=== PATIENT | male | born 1945 | race Caucasian/White ===

== ENCOUNTER 2025-01-08 11:27 | Emergency (ER) | payer MEDICARE, BC, SELFPAY ==
[2025-01-08 11:30] VITALS: BP 144/69; PULSE 76; RESP 18; TEMP 36.4; O2SAT 95; BMI 24.8
--- NOTE | 2025-01-08 11:48 | ED.FALL ---
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 Unfortunately Dharmesh was going down the basement stairs yesterday and ended up falling down 3 steps as he was trying to lift something into the basement. He felt like his knee was twisting at that time. He did not sustain any other injury and denies increasing neck or head pain. Initially he was walking on it but over the evening he had increasing pain and this morning he states it is even hard to take a step. He is not currently on a blood thinner. Movement greatly increases does discomfort as does weight-bearing. He takes tramadol for cervical spine pain and notes that this is not helping. Related Data Home Medications ?Medication ?Instructions ?Recorded ?Confirmed amlodipine 5 mg tablet 5 mg PO DAILY 01/08/25 01/08/25 fluticasone 250 mcg-salmeterol 50 1 inh inhalation BID 01/08/25 01/08/25 mcg/dose blistr powdr for inhalation lutein 25 mg-zeaxanthin 5 mg cap PO 01/08/25 capsule (Ocuvite Blue Light) mesalamine 800 mg tablet,delayed 1,600 mg PO TID 01/08/25 01/08/25 release potassium chloride 10 mEq 10 meq PO DAILY 01/08/25 01/08/25 tablet,extended release rosuvastatin 5 mg tablet 5 mg PO DAILY 01/08/25 01/08/25 tramadol 50 mg tablet 50 mg PO BID 01/08/25 01/08/25 Allergies Allergy/AdvReac Type Severity Reaction Status Date / Time amoxicillin (From Augmentin) Allergy Unknown Verified 01/08/25 11:37 clavulanic acid (From Allergy Unknown Verified 01/08/25 11:37 Augmentin) morphine AdvReac Mild Nausea Verified 01/08/25 11:37 Review of Systems Status of ROS: Reports: 6 or more systems reviewed and unremarkable except as noted in History and below [facility] Medical History Amputation of finger of left hand ?S68.119A - Complete traumatic metacarpophalangeal amputation of unspecified finger, initial encounter (ICD-10) Asthma-COPD overlap syndrome ?J44.89 - Other specified chronic obstructive pulmonary disease (ICD-10) Neck pain, chronic ?M54.2 - Cervicalgia (ICD-10) ?G89.29 - Other chronic pain (ICD-10) AGUSTIN (iron deficiency anemia) ?D50.9 - Iron deficiency anemia, unspecified (ICD-10) Acute Rocky ulcer ?K25.3 - Acute gastric ulcer without hemorrhage or perforation (ICD-10) Ulcerative colitis ?K51.90 - Ulcerative colitis, unspecified, without complications (ICD-10) Macular degeneration of right eye ?H35.30 - Unspecified macular degeneration (ICD-10) Prediabetes ?R73.03 - Prediabetes (ICD-10) Hyperlipidemia ?E78.5 - Hyperlipidemia, unspecified (ICD-10) Essential hypertension ?I10 - Essential (primary) hypertension (ICD-10) Surgical History Hx of laminectomy ?Z98.890 - Other specified postprocedural states (ICD-10) H/O craniotomy ?Z98.890 - Other specified postprocedural states (ICD-10) H/O esophagogastroduodenoscopy ?Z98.890 - Other specified postprocedural states (ICD-10) Exam Narrative: Exam Narrative: Alert and oriented. Very well spoken gentleman in no acute distress. External ears eyes nose clear. No respiratory distress. Examination of the right knee shows a mild effusion without erythema. Point tenderness noted on the upper tibial plateau in the midline. No pain on the joint lines or with movement of the patella. Distally no evidence of swelling. No pain with palpation of the popliteal fossa. Const: Vital Signs, click to edit/add: Vital Signs - 24 hr 01/08/25 11:30 Temperature 97.6 F Pulse Rate [Right Pulse Oximeter] 76 Respiratory Rate 18 Blood Pressure [Ri ght Upper Arm] 144/69 H Pulse Oximetry 95 Oxygen Delivery Me thod Room Air Documenting provider has reviewed patient's vital signs: yes Course Course ED Course: Differential diagnosis includes but is not limited to internal derangement of the knee, effusion, soft tissue injury. Will obtain x-rays of the right knee at this time. For pain will give patient 1 dose of oxycodone 5 mg orally as he has already taken tramadol and a 1000 mg of Tylenol earlier this morning. Vital Signs Vital signs: Initial Vital Signs Temperature 97.6 F 01/08/25 11:30 Temperature Source Temporal Artery Scan 01/08/25 11:30 Pulse Rate 76 01/08/25 11:30 Pulse Rhythm Regular 01/08/25 11:30 Pulse Strength 3+ Normal 01/08/25 11:30 Respiratory Rate 18 01/08/25 11:30 Blood Pressure 144/69 H 01/08/25 11:30 Blood Pressure Mean 94 01/08/25 11:30 Blood Pressure Position Sitting 01/08/25 11:30 Pulse Oximetry 95 01/08/25 11:30 Oxygen Delivery Method Room Air 01/08/25 11:30 Vital Signs Temperature 97.6 F 01/08/25 11:30 Pulse Rate 76 01/08/25 11:30 Respiratory Rate 18 01/08/25 11:30 Blood Pressure 144/69 H 01/08/25 11:30 Pulse Oximetry 95 01/08/25 11:30 Oxygen Delivery Method Room Air 01/08/25 11:30 Temperature 97.6 F 01/08/25 11:30 Pulse Rate 76 01/08/25 11:30 Respiratory Rate 18 01/08/25 11:30 Blood Pressure 144/69 H 01/08/25 11:30 Pulse Oximetry 95 01/08/25 11:30 Oxygen Delivery Method Room Air 01/08/25 11:30 Medications Administered Medications: Discontinued Medications Generic Name Dose Route Start Last Admin Trade Name Freq PRN Reason Stop Dose Admin Oxycodone HCl 5 mg 01/08/25 11:58 01/08/25 12:08 Oxycodone 5 Mg Tablet PO 01/08/25 11:59 5 mg ONCE ONE Administration MDM - Fall MDM Narrative Medical decision making narrative: 1. Right knee mtvpre-o-mod does show an effusion but no acute fracture. I do have worry regarding compromise of the ligaments and meniscus given patient's description of a twisting type of injury as well as feeling unsteady when he has to move side to side. At this time will place a Jamie wrap to limit swelling. Will then place a knee immobilizer and crutches for partial weight-bearing. I do want him to leave his leg down in use that for balance. Would ask that he use ice on the knee for discomfort and tried elevated as much as possible. For pain I would have him stop tramadol and instead use oxycodone 5 mg as needed. Warnings regarding side effects including constipation. I have also reminded this patient that he should not use alcohol, any sedating medications or drive while using oxycodone. This is given out of [place] meds. 5 mg p.o. q.4-6 hours p.r.n. 10. With no refills. Further narcotics will need to come from his primary MD. 2. Disposition-patient will be discharged home. We have made an appointment for him with our Orthopedic [facility]. He may need MRI and/or physical therapy but certainly I suspect he will require further evaluation. He is to return to the ER for worsening symptoms and as needed. No evidence of acute head or neck injury during today's visit. Imaging Data Right knee x-ray: Attestation: I have reviewed the pertinent imaging results. My impression: I do not note any acute fractures. Radiologist's impression: None. Findings/ Impression: Mild degenerative arthrosis. No acute fracture or dislocation. Moderate knee joint effusion. Soft No localized tissue swelling. Discharge Plan Discharge Clinical Impression: Injury of knee, right Qualifiers: Encounter type: initial encounter Qualified Code(s): S89.91XA - Unspecified injury of right lower leg, initial encounter Patient Disposition: Home, Self-Care Condition: Improved Additional Instructions: Apply Jamie wrap to the knee, knee immobilizer and use crutches so that you do not have to bear full weight on the knee. I suspect you may need MRI and/or physical therapy and therefore would like you to follow-up with orthopedics. Your appointment will be tomorrow, 01/09 at 1030AM at the [facility]. Oxycodone 5-1/2-1 tab every 4-6 hours as needed for pain. While using oxycodone I would ask you not to use the tramadol as using both of these together can cause over sedation. I would suggest the use of Colace so that you do not develop constipation. Ice to area of discomfort. Try to stay off knee and keep it elevated. The emergency room for worsening symptoms. Prescriptions: No Action lutein-zeaxanthin [Ocuvite Blue Light] 25-5 mg capsule PO fluticasone propion-salmeterol 250-50 mcg/dose blister with device 1 inh inhalation BID potassium chloride 10 mEq tablet extended release 10 meq PO DAILY amlodipine 5 mg tablet 5 mg PO DAILY rosuvastatin 5 mg tablet 5 mg PO DAILY mesalamine 800 mg tablet,delayed release (DR/EC) 1,600 mg PO TID Rx Instructions: must be taken on empty stomach; no food 1 hr after or 2-3 hrs before dose tramadol 50 mg tablet 50 mg PO BID Follow Up/Referrals: Del Krueger MD [Primary Care Provider, Family Practice] Stand Alone Forms: [employer] Info Instructions
--- NOTE | 2025-01-08 11:58 | CRLHL7_ITS ---
For Patients: As a result of the Cures Act, medical imaging exams and procedure reports are released immediately into your electronic medical record. You may view this report before your referring provider. If you have questions, please contact your health care provider. Indication: Twisting with effusion Technique: Right knee 3 views. Comparison: None. Findings/ Impression: Mild degenerative arthrosis. No acute fracture or dislocation. Moderate knee joint effusion. Soft No localized tissue swelling. Dictated by Brady Alexander MD @ 01/08/2025 12:36:32 PM (Electronically Signed)
--- OUTSIDE RECORDS SUMMARY | 2025-01-08 12:33 | XMS_ITS | Clinical Summary ---
Author Organization [facility] Address [address] [place] [address] Care Team Providers Care Hose Stripper Name Role Phone Del Krueger MD Primary Care Provider Allergies Active Allergy Reactions Criticality Noted Date Comments Amoxicillin-Pot Clavulanate Nausea And Vomiting 04/13/2011 Cephalexin Other - Describe In Comment Field 10/29/2012 diarrhea Morphine *Unknown 08/17/2019 Acute psychosis Medications coenzyme q10 100 mg cap Take 1 Cap by mouth. 12/30/19 19 Active multivitamin (MVI) tablet Take 1 tablet by mouth once daily. 0 11/19/19 20 Active calcium carbonate-vitamin D3, 600 mg-400 unit, 600 mg(1,500mg) -400 unit tablet Take 1 tablet by mouth 2 times daily with meals. 200 tablet 4 11/19/19 20 Active lutein-zeaxanthin 25-5 mg cap Take by mouth. 0 11/19/19 20 Active acetaminophen (TYLENOL EXTRA STRGTH) 500 mg tablet Take 1 tablet by mouth every 6 hours if needed. Max acetaminophen dose: 4000mg in 24 hrs. 0 11/19/19 20 Active albuterol HFA (PRO-AIR; VENTOLIN; PROVENTIL) 90 mcg/actuation inhalerIndications :Moderate persistent asthma with exacerbation (HC) Inhale 1-2 Puffs by mouth every 4 hours if needed for Shortness of Breath 1st choice. 2 g 1 11/23/19 24 Active amLODIPine (NORVASC) 5 mg tabletIndications: Essential hypertension Take 1 Tablet (5 mg) by mouth once daily. 90 Tablet 3 11/23/19 24 Active chlorthalidone (HYGROTON) 25 mg tabletIndications: Benign essential HTN Take 1 Tablet (25 mg) by mouth once daily. 90 Tablet 3 11/23/19 24 Active fluticasone propion-salmeteroL (Advair Diskus) 250-50 mcg/Dose diskus inhalerIndications :Moderate persistent asthma with exacerbation (HC) Inhale 1 Puff by mouth two times daily. 60 Each 12 11/23/19 24 Active montelukast (SINGULAIR) 10 mg tabletIndications: Asthma-COPD overlap syndrome (HC) Take 1 Tablet (10 mg) by mouth at bedtime. 90 Tablet 3 11/23/19 24 Active polyethylene glycol-electrolyte 236-22.74-6.74 -5.86 gram suspensionIndicati ons:Encounter for screening colonoscopy Drink 2 liters (half the bottle) the day before the procedure and 2 liters (half the bottle) 6 hours prior to procedure. 4000 mL 08/29/19 25 Active omeprazole 20 mg Delayed-Release capsuleIndications :Rocky ulcer, unspecified ulcer chronicity,Hiatal hernia,Gastroesoph ageal reflux disease, unspecified whether esophagitis present Take 1 Capsule (20 mg) by mouth once daily before a meal. Take 30-60 minutes before a meal/food once a day. 90 Capsule 3 09/12/19 25 Active traMADoL (ULTRAM) 50 mg tabletIndications: Neck pain TAKE 1 TABLET BY MOUTH TWICE A DAY NEEDED FOR PAIN 60 Tablet 11/05/19 25 Active mesalamine (ASACOL HD) 800 mg DELAYED RELEASE tabletIndications: Ulcerative colitis without complications, unspecified location (HC) TAKE 2 TABLETS (1,600 MG) BY MOUTH TWO TIMES DAILY. 360 Tablet 11/17/19 25 Active potassium chloride (KLOR-CON M10) 10 mEq extended-release tablet (part/cryst)Indica tions:Essential hypertension TAKE 1 TABLET (10 MEQ) BY MOUTH TWO TIMES DAILY WITH MEALS. 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 C-scope negative. Resolved Problems Problem Noted Date Diagnosed Date Resolved Date Chronic obstructive pulmonar y disease, unspecified COPD type 04/17/2023 06/07/2023 Chronic obstructive pulmonary disease 03/29/2020 03/29/2020 Ulcerative colitis without complications 03/29/2020 03/29/2020 COPD (chronic obstructive pulmonary disease) 03/29/2020 Encounters Date Type Department Care Team Description 12/01/2024 Refill [facility] [address] [place] [address] Del Krueger MD Refill Request (Rosuvastatin) 11/14/2024 Refill [facility] [address] [place] [address] Del Krueger MD Refill Request (Mesalamine, Potassium Chloride) 11/03/2024 Refill [facility] [address] [place] [address] Del Krueger MD Refill Request (Tramadol) 10/29/2024 Orders Only [facility] [address] [place] [address] Del Krueger MD <No scans attached> 10/28/2024 11:30 AM CDT Orders Only [facility] [address] [place] [address] Lab, [facility] 10/28/2024 Travel 10/27/2024 11:30 AM CDT Office Visit [facility] [address] [place] [address] [address] [facility] (SALIN[facility] check) 10/26/2024 Travel from Last 3 Months Immunizations Immunization Administration Dates Next Due COVID-19 VACCINE SPIKEVAX (M ODERNA 50MCG/0.5ML) 12YO+ PFS 08/19/2024,06/07/2023 COVID-19 vaccine (Moderna 100mcg/0.5mL) PF, MDV 02/24/2021,06/24/2020,05/27/2020 COVID-19 vaccine (Moderna 50mcg/0.5mL) 12YO+ BIVALENT PF, MDV 12/05/2021 Hepatitis A (Adult) 04/17/2016,03/12/2013 Hepatitis B (Adult) 04/15/1990,11/06/1989,1989 Influenza Virus, Unspecified 01/25/2009, 02/29/2000,01/07/1999,1997,01/08/1995 Influenza, High-dose Inactivated 020,01/26/2016,12/30/2014,2012 Influenza, High-dose Quadriv alent Inactivated 01/15/2020 Influenza, IIV3 (Age >=3 years) 01/05/2012,12/06,01/04/2010 Influenza, Inactivated AIIV4 (Age 65+ Years) Preserv Free 12/07/2022,12/05/2021,12/14/2020 MMR 01/22/1990 Pneumococcal Conj 20-valent (Prevnar 20) 06/05/2022 Pneumococcal Poly,23-Valent (Pneumovax) 10/29/2012 Pneumococcal conj 13-Valent (Prevnar 13) 01/26/2016 Tdap 10/29/2012 Zoster (Shingrix-RZV, recombinant) 10/07/2018, Zoster (Zostavax-ZVL, live) 06/28/2012 Family History Medical History Relation Name Comments COPD Father Coronary artery disease Father COPD Mother Anesthesia Problem No Family History Relation Name Status Comments Father Mother Social History Tobacco Use Types Packs/Day Years Used Date Smoking Tobacco: Never Smokeless Tobacco: Never Tobacco Cessation:Counseling Given: No Alcohol Use Standard Drinks/Week Comments Not Currently 0 (1 standard drink = 0.6 oz pur e alcohol) PHQ-2 Answer Date Recorded PHQ-2 TOTAL SCORE 0 11/23/2023 Social Connections Answer Date Recorded Do you often feel lonely or isolated from those around you? 0 08/19/2024 Financial Resource Strain Answer Date R ecorded Difficulty of Paying Living Expenses 3 08/19/2024 Difficulty of Paying Living Expenses Not on file 08/19/2024 Food Insecurity Answer Date Recorded Do you worry your food will run out before you are able to buy more? 1 08/19/2024 Transportation Needs Answer Date Record ed Does lack of transportation keep you from medica l appointments? 1 08/19/2024 Does lack of transportation keep you from work, meetings or getting things that you need? 1 08/19/2024 Housing Stability Answer Date Recorded What is your housing situation today? 1 08/19/2024 Utilities Answer Date Recorded Do you have trouble paying f or utilities (for example, heat, electricity, water, phone)? 1 08/19/2024 Sex and Gender Information Value Date Recorded Sex Assigned at Not on file Legal Sex Male 7:07 AM [employer] Gender Identity Not on file Sexual Orientation Not on file Obstetrics History Last Filed Vital Signs Vital Sign Reading Time Taken Comments Blood Pressure 132/75 08/19/2024 11:20 AM CDT Pulse 83 08/19/2024 11:20 AM CDT Temperature 36.6 C (97.9 F) 06/10/2024 12:10 PM CDT Respiratory Rate 16 06/10/2024 12:10 PM CDT Oxygen Saturation 95% 08/19/2024 11:20 AM CDT Inhaled Oxygen Concentration - - Weight 79.4 kg (175 lb) 08/19/2024 11:20 AM CDT Height 180.9 cm (5' 11.22) 11/23/2023 8:25 AM C DT Body Mass Index 24.26 11/23/2023 8:25 AM CDT Plan of Treatment Health Maintenance Due Date Last Done Comments RSV vaccine for adults or (1 - 1-dose 75+ series) 2021 Tetanus booster 10/29/2022 10/29/2012 BMI (ht and wt on same day) for age 18+ 11/22/2024 11/23/2023, 06/07/2023, 12/07/2022, Additional history exists Depression screening for age 12+ 11/22/2024 11/23/2023, 06/07/2023, 12/05/2021, Additional history exists Medicare Wellness for age 65+ 11/23/2024 11/23/2023 Influenza Vaccine (#1) 2024 , 12/05/2021, 12/14/2020, Additional history exists COVID-19 vaccine series ( season) 2025 08/19/2024, 06/07/2023, 12/05/2021, Additional history exists Hepatitis B series for 19+ Completed 04/15, 11/06/1989, 10/05/1989 Zoster (shingles) series for age 50+ Completed 10/07/2018, 06/13/2017, 06/28/2012 Hepatitis C screening for ag e 18-79 Completed 05/26/2021 Pneumococcal series for age 50+ Completed 06/05/2022, 01/26/2016, 10/29/2012 Procedures Procedure Name Priority Date/Time Associated Diagnosis Comments IRON PLUS IRON BINDING CAP Routine 10/28/2024 11:29 AM CDT Iron deficiency anemia, unspecified iron deficiency anemia type HEMOGLOBIN Routine 10/28/2024 11:29 AM CDT Iron deficiency anemia, unspecified iron deficiency anemia type FERRITIN Routine 10/28/2024 11:29 AM CDT Iron deficiency anemia, unspecified iron deficiency anemia type ANTI HCV Routine 05/26/2021 2:10 PM [employer] Need for hepatitis C screening test from Last 3 Months or Most Recently Relevant to Health Maintenance Results * (ABNORMAL) IRON PLUS IRON BINDING CAP (10/28/2024 11:29 AM CDT) IRON, TOTAL 245(H) 50 - 180 mcg/dL [facility] IRON BINDING CAPACITY 389 250 - 425 mcg/dL (calc) [facility] % SATURATION 63(H) 20 - 48 % (calc) [facility] Blood BLOOD SPECIMEN / Unknown 10/28/2024 11:29 AM CDT 10/28/2024 11:30 AM CDT us Del Krueger MD CHEMISTRY Final Result Performing Organization Address [facility]/ZIP Co de Phone Number [email or web address] [facility] [address] [place] [phone], [facility] [address] [place] [address] * HEMOGLOBIN (10/28/2024 11:29 AM CDT) Pathologist [facility] HEMOGLOBIN 14.1 13.2 - 17.1 g/dL [facility] Blood BLOOD SPECIMEN / Unknown 10/28/2024 11:29 AM CDT 10/28/2024 11:30 AM CDT us Del Krueger MD HEMATOLOGY Final Result Performing Organization Address [facility]/ZIP Co de Phone Number [email or web address] [facility] [address] [place] [phone], [facility] [address] [place] [address] * (ABNORMAL) FERRITIN (10/28/2024 11:29 AM CDT) FERRITIN 23(L) 24 - 380 ng/mL [facility] Blood BLOOD SPECIMEN / Unknown 10/28/2024 11:29 AM CDT 10/28/2024 11:30 AM CDT us Del Krueger MD CHEMISTRY Final Result [facility] [address] [place] [address], [facility] [address] [place] [address] * ANTI HCV (05/26/2021 2:10 PM [employer]) HEPATITIS C ANTIBODY Non-React nahid Non-React nahid 05/26/2021 9:38 PM [employer] [facility] Comment:Antibodies to HCV no t detected; does not exclude the possibility of exposure to HCV. Blood BLOOD SPECIMEN / Unknown Venipuncture / Unknown 05/26/2021 2:10 PM [employer] 05/26/2021 2:10 PM [employer] Del Krueger MD SEND OUTS Final Result [facility] [address] [place] [address], from Last 3 Months or Most Recently Relevant to Health Maintenance Insurance [address] [facility] [address] [place] ONLY MEDICARE PART A HB ONLY MEDICARE PART B HB ONLY [place] BLUE MR PB ONLY Care Teams Hose Stripper Relationship Specialty Start Date End Date Del Krueger MD [address] [place], [place] [id number] PCP - General Family Practice 03/29/20
== END 2025-01-08 13:44 | disposition home or self-care (01) ==
PROVIDERS: Emergency Provider Family Medicine; PCP Family Medicine
DX: S89.91XA Unspecified injury of right lower leg, initial encounter (principal); M25.461 Effusion, right knee; W10.8XXA Fall (on) (from) other stairs and steps, initial encounter; X50.1XXA Overexertion from prolonged static or awkward postures, initial encounter
CPT/HCPCS: 73562; 99283; 99284; A9270

== ENCOUNTER 2025-01-12 07:00 | Outpatient (CLI) | payer MEDICARE, BC, SELFPAY ==
--- NOTE | 2025-01-12 07:15 | MR_ITS ---
EXAM: MRI of the RIGHT KNEE without contrast CLINICAL: Right knee injury. COMPARISONS: X-rays dated 01/08/2025. TECHNICAL: Multiplanar multisequence MRI of the right knee was obtained. SEDATION: None. CONTRAST: None. FINDINGS: Ligaments: ACL: Intact and unremarkable. PCL: There is irregularity and ill-defined partial tearing involving the PCL consistent with a grade 2 sprain injury. MCL: Mild thickening of the proximal MCL is suggestive of sequelae of prior sprain injury. LCL: Intact and unremarkable. Posterolateral corner: There is mild edema/strain involving the popliteus muscle. The popliteus tendon, distal biceps femoris tendon, distal iliotibial band, and the popliteofibular ligament appear intact. Posteromedial corner: Semimembranosus, pes anserine tendons and posterior oblique ligament appear intact. Extensor mechanism: Patellar tendon: Intact, without tendinopathy. Quadriceps tendon: Intact, without tendinopathy. Retinacula: Medial and lateral retinacula are intact. Fat pads: Unremarkable infrapatellar Hoffa's, quadriceps and prefemoral fat pads. Patellofemoral joint: Patella: There is full-thickness chondral loss involving the patellar median ridge extending into the lateral facet on axial series 4 images 9-10 with mild adjacent subchondral reactive marrow edema. Trochlea: No significant chondromalacia. Medial compartment: Medial meniscus: There is complex tearing throughout the posterior horn extending into the posterior root with complex tearing also seen throughout the body segment. There is slight medial extrusion of the peripheral body segment. Medial cartilage: No significant chondromalacia. Lateral compartment: Lateral meniscus: There is complex tearing throughout the entire lateral meniscus. Lateral cartilage: There is full-thickness chondral loss involving the weightbearing lateral femoral condyle and lateral tibial plateau with mild subchondral reactive marrow edema involving the lateral tibial plateau. Full- thickness chondral loss involves the peripheral posterior nonweightbearing lateral femoral condyle. Knee joint: Effusion: Moderate to large right knee effusion. Intra-articular bodies:?Small intra-articular body is seen along the periphery of the anterior horn lateral meniscus on sagittal series 6 image 10. Popliteal cyst: None. Bones: No suspicious bone marrow signal alteration or fracture line. Complex ganglion cyst formation along the posterior distal femur measures approximately 47 mm in craniocaudal dimension as seen on sagittal series 6 image 16. There is increased edema involving the anterior knee subcutaneous soft tissues, nonspecific. IMPRESSION: 1. Grade 2 sprain injury involving the PCL. 2. Sequelae of prior sprain injury involving the MCL. 3. Tearing of the medial and lateral menisci as above. 4. Full-thickness chondral loss involving the patella and lateral compartment as above. 5. Moderate to large joint effusion with a small intra-articular body along the periphery of the anterior horn lateral meniscus. JCZ Electronically signed on 01/12/2025 11:15:00 AM by Asa Boone D.O.
== END 2025-01-12 07:01 | disposition home or self-care (01) ==
LOC: MRI 07:00
PROVIDERS: PCP Family Medicine; Visit Provider Physician Assistant
DX: M25.561 Pain in right knee (principal); S83.521A Sprain of posterior cruciate ligament of right knee, initial encounter; S83.411S Sprain of medial collateral ligament of right knee, sequela; M25.461 Effusion, right knee; S89.91XA Unspecified injury of right lower leg, initial encounter
CPT/HCPCS: 73721